=== PATIENT | female | born 1975 | race Caucasian/White ===

== ENCOUNTER → 2017-10-30 | Outpatient (CLI) | payer OTHER ==
[2017-10-30 09:07] LABS: BASOPHILS % (AUTO) 0.5 % (0-1); EOSINOPHILS # (AUTO) 0.1 X10'3 (0-0.9); EOSINOPHILS % (AUTO) 1.1 % (0-6); HEMATOCRIT 39.7 % (35.0-45.0); HEMOGLOBIN 14.1 g/dl (12.0-16.0); LYMPHOCYTES # (AUTO) 2.1 X10'3 (1.1-4.8); LYMPHOCYTES % (AUTO) 39.3 % (21-51); MEAN CORPUSCULAR HGB CONC 35.5 % (33.0-36.5); MEAN CORPUSCULAR VOLUME 95.6 FL (78-98); MEAN PLATELET VOLUME 7.4 FL (7.4-10.4); MONOCYTES # (AUTO) 0.3 X10'3 (0-0.9); MONOCYTES % (AUTO) 6.5 % (2-12); NEUTROPHILS # (AUTO) 2.8 X10'3 (1.8-7.7); NEUTROPHILS % (AUTO) 52.6 % (42-75); PLATELET COUNT 273 X10'3 (140-440); RED BLOOD COUNT 4.15 X10'6 (4.20-5.60); RED CELL DISTRIBUTION WIDTH 12.4 % (11.5-14.5); WHITE BLOOD COUNT 5.3 X10'3 (4.5-11.0)
[2017-10-30 09:35] LABS: ALANINE AMINOTRANSFERASE 64 U/L (12-78); ALBUMIN 4.5 G/DL (3.4-5.0); ALBUMIN/GLOBULIN RATIO 1.5 (1.1-1.5); ALKALINE PHOSPHATASE 54 IU/L (46-116); ANION GAP 10 (8-16); ASPARTATE AMINO TRANSFERASE 32 U/L (10-37); BILIRUBIN,TOTAL 0.8 MG/DL (0.1-1.0); BLOOD UREA NITROGEN 14 MG/DL (7-18); BUN/CREATININE RATIO 16.3 (6.6-38.0); CALCIUM 9.3 MG/DL (8.5-10.1); CHLORIDE 104 MMOL/L (99-107); CHOL/HDL RATIO 2.1 (0.00-4.99); CHOLESTEROL 206 MG/DL (0-200); CREATININE 0.86 MG/DL (0.40-0.90); GLUCOSE 101 MG/DL (70-104); HDL CHOLESTEROL 98 MG/DL (35-60); LDL CHOLESTEROL 104 MG/DL (50-100); POTASSIUM 4.1 MMOL/L (3.5-5.1); SODIUM 142 MMOL/L (135-145); TOTAL CARBON DIOXIDE 27.6 MMOL/L (24-32); TOTAL PROTEIN 7.6 G/DL (6.4-8.2); TRIGLYCERIDES 75 MG/DL (20-135); eGFR 72 ML/MIN
[2017-10-30 09:49] LABS: HEMOGLOBIN A1C 4.8 % (4.5-6.2)
== END ==
LOC: LAB 08:31
PROVIDERS: ATTEND Family Medicine
DX: D64.9 Anemia, unspecified (principal); E11.9 Type 2 diabetes mellitus without complications; E78.5 Hyperlipidemia, unspecified; E03.9 Hypothyroidism, unspecified; E55.9 Vitamin D deficiency, unspecified; R79.9 Abnormal finding of blood chemistry, unspecified
CPT/HCPCS: 36415; 80053; 80061; 82306; 83036; 84443; 85025

== ENCOUNTER 2018-04-01 07:36 | Outpatient (CLI) | payer OTHER | END 2018-04-01 23:59 | disposition home or self-care (01) | LOC: LAB 07:36 | PROVIDERS: ATTEND Family Medicine | DX: E03.9 Hypothyroidism, unspecified (principal) | CPT/HCPCS: 36415; 84443 ==

== ENCOUNTER 2018-04-16 12:41 | Outpatient (CLI) | payer OTHER | END 2018-04-16 23:59 | disposition home or self-care (01) | LOC: RAD 12:41 | PROVIDERS: ATTEND Podiatrist Foot & Ankle Surgery | DX: M20.42 Other hammer toe(s) (acquired), left foot (principal); M79.672 Pain in left foot | CPT/HCPCS: 73720 ==

== ENCOUNTER 2018-05-05 05:30 | Day surgery (SDC) | payer OTHER ==
[2018-04-29 15:52] LABS: BASOPHILS % (AUTO) 0.4 % (0-1); EOSINOPHILS # (AUTO) 0.1 X10'3 (0-0.9); EOSINOPHILS % (AUTO) 1.2 % (0-6); LYMPHOCYTES # (AUTO) 2.4 X10'3 (1.1-4.8); LYMPHOCYTES % (AUTO) 31.9 % (21-51); MEAN CORPUSCULAR HEMOGLOBIN 33.1 PG (27.0-31.0); MEAN CORPUSCULAR HGB CONC 34.6 % (33.0-36.5); MEAN CORPUSCULAR VOLUME 95.7 FL (78-98); MONOCYTES # (AUTO) 0.5 X10'3 (0-0.9); MONOCYTES % (AUTO) 7.2 % (2-12); NEUTROPHILS # (AUTO) 4.4 X10'3 (1.8-7.7); NEUTROPHILS % (AUTO) 59.3 % (42-75); PRE OP HEMATOCRIT 40.4 % (35.0-45.0); PRE OP PLATELET COUNT 278 X10'3 (140-440); RED BLOOD COUNT 4.22 X10'6 (4.20-5.60); RED CELL DISTRIBUTION WIDTH 12.9 % (11.5-14.5)
[2018-04-29 16:00] LABS: HCG SERUM QL NEGATIVE
[2018-04-29 16:06] LABS: ALBUMIN 3.8 G/DL (3.4-5.0); ALBUMIN/GLOBULIN RATIO 1.2 (1.1-1.5); ALKALINE PHOSPHATASE 73 IU/L (46-116); BLOOD UREA NITROGEN 18 MG/DL (7-18); BUN/CREATININE RATIO 20.7 (6.6-38.0); CALCIUM 8.6 MG/DL (8.5-10.1); CHLORIDE 104 MMOL/L (99-107); CREATININE 0.87 MG/DL (0.40-0.90); PRE OP ALT 62 U/L (30-65); PRE OP ANION GAP 7 (8-16); PRE OP AST 33 U/L (10-37); PRE OP BILIRUB, TOTAL 0.5 MG/DL (0.0-1.0); PRE OP GLUCOSE 89 MG/DL (70-104); PRE OP POTASSIUM 3.7 MMOL/L (3.4-5.1); PRE OP SODIUM 140 MMOL/L (135-145); TOTAL CARBON DIOXIDE 29.2 MMOL/L (24-32); TOTAL PROTEIN 7.1 G/DL (6.4-8.2); eGFR 71 ML/MIN
[~2018-05-05] VITALS: Ht 165.1 cm; Wt 79.4 kg
[2018-05-05] VITALS (9 sets, daily range): BP systolic 123–154; BP diastolic 78–106
[~2018-05-05 05:30] MED LIST: Cefazolin 2GM/50ML dext iso,osmotic IVPB IV ONE; LEVO112T39 PO; famotidine 20mg tablet PO ONE; ringers solution, lacted 1,000 ML IV SCH
[2018-05-05] MEDS ORDERED: LIDOcaine 1% (10mg/ml) 2ml vial ONE (05:54)
[2018-05-05] MEDS ORDERED: sevoflurane 250ml liquid IH ONE (07:15)
[2018-05-05] MEDS ORDERED: fentaNYL/PF 50MCG/1 ML 2ML syringe ONE (07:23)
[2018-05-05] MEDS ORDERED: midazolam 2 mg/2 ml injection ONE (07:25)
[2018-05-05] MEDS ORDERED: LIDOcaine 2% (20mg/ml) 5ml vial ONE (07:25)
[2018-05-05] MEDS ORDERED: propofol inj 20 ML IV ONE (07:25)
[2018-05-05] MEDS ORDERED: ondansetron/PF 4mg/2ml inj ONE (07:33)
[2018-05-05] MEDS ORDERED: dexamethasone sod phosphate 4mg/ml inj. ONE (07:33)
[2018-05-05] MEDS ORDERED: ringers solution, lacted 1,000 ML IV SCH (07:49)
[2018-05-05] MEDS ORDERED: proCHLORperazine 10 MG/2 ml inj IV PRN (07:50)
[2018-05-05] MEDS ORDERED: ondansetron/PF 4mg/2ml inj IV PRN (07:50)
[2018-05-05] MEDS ORDERED: morphine 4 MG/ML inj SYRINge IV PRN ×2 (07:50)
[2018-05-05] MEDS ORDERED: meperidine/PF 25mg/ml syringe IV PRN ×2 (07:50)
[2018-05-05] MEDS ORDERED: ketorolac trometh. 30mg/ml inj. ONE (08:04)
[2018-05-05] MEDS: meperidine/PF 25mg/ml syringe IV PRN ×2 (08:18→08:35)
[2018-05-05] MEDS ORDERED: HYDROcodone/acetaminophen 5mg/325mg tablet PO ONE (08:35)
== END 2018-05-05 09:10 | disposition home or self-care (01) ==
LOC: PAS 05:30
PROVIDERS: ATTEND Obstetrics & Gynecology
DX: N85.8 Other specified noninflammatory disorders of uterus (principal); N92.0 Excessive and frequent menstruation with regular cycle; E03.9 Hypothyroidism, unspecified; E78.5 Hyperlipidemia, unspecified; E11.9 Type 2 diabetes mellitus without complications; E55.9 Vitamin D deficiency, unspecified; Z72.89 Other problems related to lifestyle; Z79.899 Other long term (current) drug therapy; Z98.890 Other specified postprocedural states
CPT/HCPCS: 36415; 58563; 80053; 84703; 85025; 86885; 86900; 86901; A4355; A6255; J0690; J1100; J1885; J2001; J2175; J2250; J2405; J2704; J3010; J3490; J7120; A7000

== ENCOUNTER 2018-10-10 15:38 | Emergency (ER) | payer OTHER ==
[~2018-10-10] VITALS: Ht 165.1 cm; Wt 79.5 kg
[~2018-10-10 15:38] MED LIST changes: -Cefazolin 2GM/50ML dext iso,osmotic IVPB IV ONE; -famotidine 20mg tablet PO ONE; -ringers solution, lacted 1,000 ML IV SCH
[2018-10-10] MEDS ORDERED: HYDROcodone/acetaminophen 10/325mg tab PO STA (15:45)
[2018-10-10] MEDS ORDERED: HYDROcodone/acetaminophen 5mg/325mg tablet PO ONE (15:55)
[2018-10-10 16:02] VITALS: BP 145/69
[2018-10-10] MEDS ORDERED: HYDR-4384 PO (16:12)
== END 2018-10-10 16:43 | disposition home or self-care (01) ==
LOC: ER 15:38
DX: S82.65XA Nondisplaced fracture of lateral malleolus of left fibula, initial encounter for closed fracture (principal); E03.9 Hypothyroidism, unspecified; Z79.899 Other long term (current) drug therapy; V00.311A Fall from snowboard, initial encounter; Y93.23 Activity, snow (alpine) (downhill) skiing, snowboarding, sledding, tobogganing and snow tubing; Y92.89 Other specified places as the place of occurrence of the external cause; Y99.8 Other external cause status
CPT/HCPCS: 29515; 73610; 99284

== ENCOUNTER 2018-11-02 13:06 | Outpatient (CLI) | payer OTHER ==
[2018-11-02 13:06] VITALS: BP 141/97
== END 2018-11-02 13:25 | disposition home or self-care (01) ==
LOC: ORTHO 13:06
PROVIDERS: ATTEND Nurse Practitioner Family
DX: S82.62XD Displaced fracture of lateral malleolus of left fibula, subsequent encounter for closed fracture with routine healing (principal); W19.XXXD Unspecified fall, subsequent encounter
CPT/HCPCS: 73610; 99213

== ENCOUNTER 2018-11-30 09:30 | Outpatient (CLI) | payer OTHER ==
[2018-11-30 09:29] VITALS: BP 127/90
== END 2018-11-30 10:02 | disposition home or self-care (01) ==
LOC: ORTHO 09:30
PROVIDERS: ATTEND Nurse Practitioner Family
DX: S82.65XD Nondisplaced fracture of lateral malleolus of left fibula, subsequent encounter for closed fracture with routine healing (principal); V00.311D Fall from snowboard, subsequent encounter
CPT/HCPCS: 73610; 99213

== ENCOUNTER 2019-02-15 08:10 | Outpatient (CLI) | payer OTHER ==
[2019-02-15 08:43] LABS: BASOPHILS % (AUTO) 0.6 % (0-1); EOSINOPHILS % (AUTO) 0.5 % (0-6); HEMATOCRIT 40.4 % (35.0-45.0); HEMOGLOBIN 13.7 g/dl (12.0-16.0); LYMPHOCYTES # (AUTO) 2.3 X10'3 (1.1-4.8); LYMPHOCYTES % (AUTO) 32.9 % (21-51); MEAN CORPUSCULAR HEMOGLOBIN 32.8 PG (27.0-31.0); MEAN CORPUSCULAR VOLUME 96.4 FL (78-98); MEAN PLATELET VOLUME 7.8 FL (7.4-10.4); MONOCYTES # (AUTO) 0.5 X10'3 (0-0.9); MONOCYTES % (AUTO) 7.3 % (2-12); NEUTROPHILS # (AUTO) 4.1 X10'3 (1.8-7.7); NEUTROPHILS % (AUTO) 58.7 % (42-75); PLATELET COUNT 254 X10'3 (140-440); RED BLOOD COUNT 4.19 X10'6 (4.20-5.60); RED CELL DISTRIBUTION WIDTH 13.1 % (11.5-14.5)
[2019-02-15 09:10] LABS: ALANINE AMINOTRANSFERASE 61 U/L (12-78); ALBUMIN 3.9 G/DL (3.4-5.0); ALBUMIN/GLOBULIN RATIO 1.2 (1.1-1.5); ALKALINE PHOSPHATASE 59 IU/L (46-116); ANION GAP 9 (8-16); ASPARTATE AMINO TRANSFERASE 30 U/L (10-37); BILIRUBIN,TOTAL 0.8 MG/DL (0.1-1.0); BLOOD UREA NITROGEN 13 MG/DL (7-18); BUN/CREATININE RATIO 16.5 (6.6-38.0); CHLORIDE 103 MMOL/L (99-107); CHOLESTEROL 231 MG/DL (0-200); CREATININE 0.79 MG/DL (0.40-0.90); GLUCOSE 93 MG/DL (70-104); HDL CHOLESTEROL 78 MG/DL (35-60); LDL CHOLESTEROL 135 MG/DL (50-100); POTASSIUM 3.6 MMOL/L (3.5-5.1); SODIUM 139 MMOL/L (135-145); TOTAL CARBON DIOXIDE 27.5 MMOL/L (24-32); TOTAL PROTEIN 7.1 G/DL (6.4-8.2); TRIGLYCERIDES 74 MG/DL (20-135); eGFR 79 ML/MIN
== END 2019-02-15 23:59 | disposition home or self-care (01) ==
LOC: LAB 08:10
PROVIDERS: ATTEND Nurse Practitioner Family
DX: E03.9 Hypothyroidism, unspecified (principal)
CPT/HCPCS: 36415; 80053; 80061; 82306; 84439; 84443; 85025

== ENCOUNTER 2019-07-14 08:26 | Outpatient (CLI) | payer OTHER | END 2019-07-14 23:59 | disposition home or self-care (01) | LOC: LAB 08:26 | PROVIDERS: ATTEND Family Medicine | DX: E03.9 Hypothyroidism, unspecified (principal) | CPT/HCPCS: 36415; 84443 ==

== ENCOUNTER 2020-01-19 08:23 | Outpatient (CLI) | payer OTHER ==
[2020-01-19 09:05] LABS: BASOPHILS % (AUTO) 0.4 % (0-1); EOSINOPHILS # (AUTO) 0.1 X10'3 (0-0.9); HEMATOCRIT 42.3 % (35.0-45.0); HEMOGLOBIN 14.3 g/dl (12.0-16.0); LYMPHOCYTES # (AUTO) 1.7 X10'3 (1.1-4.8); LYMPHOCYTES % (AUTO) 29.1 % (21-51); MEAN CORPUSCULAR HEMOGLOBIN 32.9 PG (27.0-31.0); MEAN CORPUSCULAR HGB CONC 33.9 g/dL (33.0-36.5); MEAN CORPUSCULAR VOLUME 96.9 FL (78-98); MEAN PLATELET VOLUME 7.9 FL (7.4-10.4); MONOCYTES # (AUTO) 0.4 X10'3 (0-0.9); MONOCYTES % (AUTO) 6.6 % (2-12); NEUTROPHILS # (AUTO) 3.7 X10'3 (1.8-7.7); NEUTROPHILS % (AUTO) 62.9 % (42-75); PLATELET COUNT 267 X10'3 (140-440); RED BLOOD COUNT 4.36 X10'6 (4.20-5.60); WHITE BLOOD COUNT 5.9 X10'3 (4.5-11.0)
[2020-01-19 09:28] LABS: ALANINE AMINOTRANSFERASE 107 U/L (12-78); ALBUMIN 4.1 G/DL (3.4-5.0); ALBUMIN/GLOBULIN RATIO 1.2 (1.1-1.5); ALKALINE PHOSPHATASE 57 IU/L (46-116); ANION GAP 9 (8-16); ASPARTATE AMINO TRANSFERASE 78 U/L (10-37); BILIRUBIN,TOTAL 0.9 MG/DL (0.1-1.0); BLOOD UREA NITROGEN 19 MG/DL (7-18); BUN/CREATININE RATIO 18.3 (6.6-38.0); CALCIUM 8.9 MG/DL (8.5-10.1); CHLORIDE 105 MMOL/L (99-107); CHOL/HDL RATIO 2.9 (0.00-4.99); CHOLESTEROL 244 MG/DL (0-200); CREATININE 1.04 MG/DL (0.40-0.90); GLUCOSE 93 MG/DL (70-104); HDL CHOLESTEROL 85 MG/DL (35-60); LDL CHOLESTEROL 137 MG/DL (50-100); POTASSIUM 4.5 MMOL/L (3.5-5.1); SODIUM 141 MMOL/L (135-145); TOTAL CARBON DIOXIDE 27.5 MMOL/L (24-32); TOTAL PROTEIN 7.4 G/DL (6.4-8.2); TRIGLYCERIDES 131 MG/DL (20-135); eGFR 57 ML/MIN
[2020-01-20 11:32] LABS: VITAMIN D, 25-HYDROXY 65.1 ng/mL (30.0-100.0)
== END 2020-01-19 23:59 | disposition home or self-care (01) ==
LOC: LAB 08:23
PROVIDERS: ATTEND Family Medicine
DX: Z00.00 Encounter for general adult medical examination without abnormal findings (principal); R79.9 Abnormal finding of blood chemistry, unspecified; D64.9 Anemia, unspecified; E11.9 Type 2 diabetes mellitus without complications; E03.9 Hypothyroidism, unspecified; E78.00 Pure hypercholesterolemia, unspecified
CPT/HCPCS: 36415; 80053; 80061; 82306; 82607; 82746; 83036; 84443; 85025

== ENCOUNTER 2020-04-04 13:22 | Emergency (ER) | payer BC, OTHER ==
[~2020-04-04] VITALS: Ht 165.1 cm; Wt 87.0 kg
[2020-04-04 13:27] VITALS: BP 152/102
[2020-04-04] MEDS ORDERED: orphenadrine citrate 60mg/2ml inj. IM ONE (14:00)
[2020-04-04] MEDS ORDERED: ketorolac trometh. 30mg/ml inj. IM ONE (14:00)
[2020-04-04] MEDS ORDERED: IBUP-1985 PO (14:01)
[2020-04-04] MEDS ORDERED: METH-360 PO (14:01)
== END 2020-04-04 14:19 | disposition home or self-care (01) ==
LOC: ER 13:22
DX: M54.5 Low back pain (principal); E03.9 Hypothyroidism, unspecified; Z98.890 Other specified postprocedural states; Z79.899 Other long term (current) drug therapy
CPT/HCPCS: 96372; 99284; J1885; J2360

== ENCOUNTER 2020-10-02 14:44 | Emergency (ER) | payer BC ==
[~2020-10-02] VITALS: Ht 165.1 cm; Wt 84.1 kg
[~2020-10-02 14:44] MED LIST changes: +IBUP-1985 PO; +METH-360 PO
[2020-10-02] MEDS ORDERED: aspirin 81mg tab.chew PO ONE (15:00)
[2020-10-02 15:20] LABS: BASOPHILS # (AUTO) 0.1 X10'3 (0-0.2); BASOPHILS % (AUTO) 0.7 % (0-1); EOSINOPHILS % (AUTO) 0.5 % (0-6); HEMATOCRIT 42.2 % (35.0-45.0); HEMOGLOBIN 14.5 g/dl (12.0-16.0); LYMPHOCYTES # (AUTO) 2.6 X10'3 (1.1-4.8); LYMPHOCYTES % (AUTO) 35.8 % (21-51); MEAN CORPUSCULAR HEMOGLOBIN 32.6 PG (27.0-31.0); MEAN CORPUSCULAR HGB CONC 34.3 g/dL (33.0-36.5); MEAN PLATELET VOLUME 7.4 FL (7.4-10.4); MONOCYTES # (AUTO) 0.5 X10'3 (0-0.9); MONOCYTES % (AUTO) 6.3 % (2-12); NEUTROPHILS # (AUTO) 4.2 X10'3 (1.8-7.7); NEUTROPHILS % (AUTO) 56.7 % (42-75); PLATELET COUNT 339 X10'3 (140-440); RED BLOOD COUNT 4.44 X10'6 (4.20-5.60); RED CELL DISTRIBUTION WIDTH 12.5 % (11.5-14.5); WHITE BLOOD COUNT 7.4 X10'3 (4.5-11.0)
[2020-10-02 15:35] LABS: ALANINE AMINOTRANSFERASE 92 U/L (12-78); ALBUMIN/GLOBULIN RATIO 1.1 (1.1-1.5); ALKALINE PHOSPHATASE 71 IU/L (46-116); ANION GAP 7 (8-16); ASPARTATE AMINO TRANSFERASE 43 U/L (10-37); BILIRUBIN,TOTAL 0.7 MG/DL (0.1-1.0); BLOOD UREA NITROGEN 17 MG/DL (7-18); BUN/CREATININE RATIO 16.8 (6.6-38.0); CALCIUM 9.1 MG/DL (8.5-10.1); CHLORIDE 102 MMOL/L (99-107); CREATININE 1.01 MG/DL (0.40-0.90); GLUCOSE 107 MG/DL (70-104); POTASSIUM 3.9 MMOL/L (3.5-5.1); SODIUM 140 MMOL/L (135-145); TOTAL CARBON DIOXIDE 30.8 MMOL/L (24-32); TOTAL PROTEIN 7.7 G/DL (6.4-8.2); eGFR 59 ML/MIN
[2020-10-02 15:47] VITALS: BP 168/116
== END 2020-10-02 16:06 | disposition home or self-care (01) ==
LOC: EEVIPCON 14:45 → ER 14:45
DX: R07.89 Other chest pain (principal); I10 Essential (primary) hypertension; E03.9 Hypothyroidism, unspecified; Z98.890 Other specified postprocedural states; Z72.89 Other problems related to lifestyle; Z79.899 Other long term (current) drug therapy
CPT/HCPCS: 36415; 71045; 80053; 83735; 83880; 84484; 85025; 93005; 99285

== ENCOUNTER 2020-10-17 08:52 | Outpatient (CLI) | payer BC ==
[2020-10-17 10:08] LABS: ANION GAP 10 (8-16); BLOOD UREA NITROGEN 17 MG/DL (7-18); BUN/CREATININE RATIO 20.5 (6.6-38.0); CHLORIDE 102 MMOL/L (99-107); CREATININE 0.83 MG/DL (0.40-0.90); GLUCOSE 107 MG/DL (70-104); POTASSIUM 4.1 MMOL/L (3.5-5.1); SODIUM 140 MMOL/L (135-145); TOTAL CARBON DIOXIDE 27.7 MMOL/L (24-32)
[2020-10-17 10:09] LABS: ALANINE AMINOTRANSFERASE 74 U/L (12-78); ALBUMIN 4.3 G/DL (3.4-5.0); ALBUMIN/GLOBULIN RATIO 1.1 (1.1-1.5); ALKALINE PHOSPHATASE 76 IU/L (46-116); ASPARTATE AMINO TRANSFERASE 37 U/L (10-37); BILIRUBIN,TOTAL 0.6 MG/DL (0.1-1.0); CALCIUM 9.2 MG/DL (8.5-10.1); HDL CHOLESTEROL 86 MG/DL (35-60); LDL CHOLESTEROL 131 MG/DL (50-100); TOTAL PROTEIN 8.1 G/DL (6.4-8.2); TRIGLYCERIDES 105 MG/DL (20-135); eGFR 74 ML/MIN
[2020-10-17 11:57] LABS: CHOL/HDL RATIO 2.8 (0.00-4.99); CHOLESTEROL 239 MG/DL (0-200)
[2020-10-18 14:33] LABS: HBSAG SCREEN Negative (Negative); HEP A AB, IGM Negative (Negative); HEPATITIS C ANTIBODY <0.1 s/co ratio (0.0-0.9)
== END 2020-10-17 23:59 | disposition home or self-care (01) ==
LOC: LAB 08:52
PROVIDERS: ATTEND Nurse Practitioner Family
DX: I10 Essential (primary) hypertension (principal); E03.9 Hypothyroidism, unspecified; R74.01 Elevation of levels of liver transaminase levels
CPT/HCPCS: 36415; 80053; 80061; 80074; 84439; 84443

== ENCOUNTER 2021-02-06 09:06 | Outpatient (CLI) | payer BC ==
[2021-02-06 09:34] LABS: BASOPHILS % (AUTO) 0.6 % (0-1); EOSINOPHILS % (AUTO) 0.4 % (0-6); HEMATOCRIT 40.6 % (35.0-45.0); HEMOGLOBIN 14.2 g/dl (12.0-16.0); LYMPHOCYTES # (AUTO) 2.2 X10'3 (1.1-4.8); LYMPHOCYTES % (AUTO) 36.7 % (21-51); MEAN CORPUSCULAR HEMOGLOBIN 33.4 PG (27.0-31.0); MEAN CORPUSCULAR HGB CONC 34.8 g/dL (33.0-36.5); MEAN CORPUSCULAR VOLUME 95.9 FL (78-98); MEAN PLATELET VOLUME 7.8 FL (7.4-10.4); MONOCYTES # (AUTO) 0.5 X10'3 (0-0.9); MONOCYTES % (AUTO) 7.7 % (2-12); NEUTROPHILS # (AUTO) 3.3 X10'3 (1.8-7.7); NEUTROPHILS % (AUTO) 54.6 % (42-75); PLATELET COUNT 290 X10'3 (140-440); RED BLOOD COUNT 4.23 X10'6 (4.20-5.60); RED CELL DISTRIBUTION WIDTH 12.4 % (11.5-14.5)
[2021-02-06 10:06] LABS: ALANINE AMINOTRANSFERASE 62 U/L (12-78); ALBUMIN/GLOBULIN RATIO 1.1 (1.1-1.5); ALKALINE PHOSPHATASE 69 IU/L (46-116); ANION GAP 8 (8-16); ASPARTATE AMINO TRANSFERASE 39 U/L (10-37); BILIRUBIN,TOTAL 1.1 MG/DL (0.1-1.0); BLOOD UREA NITROGEN 15 MG/DL (7-18); BUN/CREATININE RATIO 15.5 (6.6-38.0); CALCIUM 9.4 MG/DL (8.5-10.1); CHLORIDE 102 MMOL/L (99-107); CREATININE 0.97 MG/DL (0.40-0.90); GLUCOSE 102 MG/DL (70-104); SODIUM 141 MMOL/L (135-145); TOTAL CARBON DIOXIDE 30.7 MMOL/L (24-32); TOTAL PROTEIN 7.5 G/DL (6.4-8.2); eGFR 62 ML/MIN
== END 2021-02-06 23:59 | disposition home or self-care (01) ==
LOC: LAB 09:06
PROVIDERS: ATTEND Nurse Practitioner Family
DX: E03.9 Hypothyroidism, unspecified (principal); I10 Essential (primary) hypertension; R53.83 Other fatigue
CPT/HCPCS: 36415; 80053; 84443; 85025

== ENCOUNTER 2021-07-08 09:44 | Emergency (ER) | payer BC ==
[~2021-07-08] VITALS: Ht 165.1 cm; Wt 85.0 kg
[2021-07-08 10:04] VITALS: BP 165/99
== END 2021-07-08 10:13 | disposition home or self-care (01) ==
LOC: ER 09:44
DX: R05.9 Cough, unspecified (principal); R51.9 Headache, unspecified; R09.81 Nasal congestion; I10 Essential (primary) hypertension; E06.9 Thyroiditis, unspecified; Z20.822 Contact with and (suspected) exposure to COVID-19
CPT/HCPCS: 87635; 99283; C9803

== ENCOUNTER 2021-08-19 09:35 | Outpatient (CLI) | payer BC ==
[2021-08-19 10:12] LABS: CLARITY,URINE SLIGHTLY CLOUDY (Clear); COLOR,URINE YELLOW (Yellow); GLUCOSE, URINE NEGATIVE (Neg); KETONES,URINE NEGATIVE (Neg); LEUKOCYTE ESTERASE ,URINE NEGATIVE (Neg); NITRITES, URINE NEGATIVE (Neg); OCCULT BLOOD,URINE NEGATIVE (Neg); PROTEIN,URINE NEGATIVE (Neg); UROBILINOGEN,URINE 0.2 E.U/dL (0.2-1.0)
[2021-08-19 10:14] LABS: BASOPHILS % (AUTO) 0.4 % (0-1); EOSINOPHILS % (AUTO) 0.5 % (0-6); HEMATOCRIT 39.3 % (35.0-45.0); HEMOGLOBIN 13.7 g/dl (12.0-16.0); MEAN CORPUSCULAR HEMOGLOBIN 33.6 PG (27.0-31.0); MEAN CORPUSCULAR HGB CONC 34.8 g/dL (33.0-36.5); MEAN CORPUSCULAR VOLUME 96.5 FL (78-98); MEAN PLATELET VOLUME 7.4 FL (7.4-10.4); MONOCYTES # (AUTO) 0.5 X10'3 (0-0.9); MONOCYTES % (AUTO) 7.1 % (2-12); NEUTROPHILS # (AUTO) 3.2 X10'3 (1.8-7.7); PLATELET COUNT 278 X10'3 (140-440); RED BLOOD COUNT 4.07 X10'6 (4.20-5.60); RED CELL DISTRIBUTION WIDTH 12.8 % (11.5-14.5); WHITE BLOOD COUNT 6.8 X10'3 (4.5-11.0)
[2021-08-19 10:15] LABS: UA COLLECTION TYPE CLN CATCH MIDSTREAM
[2021-08-19 10:17] LABS: MUCUS STRANDS FEW /LPF (Neg); SQUAMOUS EPITHELIAL CELL,UR MANY /LPF (FEW)
[2021-08-19 10:18] LABS: BACTERIA,URINE FEW /HPF (Neg); RBC,URINE 0-2 /HPF (0-2); WBC,URINE 0-4 /HPF (0-4)
== END 2021-08-19 23:59 | disposition home or self-care (01) ==
LOC: LAB 09:35
PROVIDERS: ATTEND Plastic Surgery
DX: Z01.818 Encounter for other preprocedural examination (principal); Z41.1 Encounter for cosmetic surgery
CPT/HCPCS: 36415; 81001; 85025

== ENCOUNTER 2021-10-03 06:57 | Emergency (ER) | payer BC ==
[~2021-10-03] VITALS: Ht 165.1 cm; Wt 86.4 kg
--- NOTE | 2021-10-03 07:49 | NUR ---
pt is positive for covid notified the patient .
[2021-10-03] MEDS ORDERED: dexamethasone 4mg tablet PO ONE (08:10)
[2021-10-03] MEDS ORDERED: DEXA6TAB6 PO (08:10)
[2021-10-03 08:22] VITALS: BP 134/86
== END 2021-10-03 08:25 | disposition home or self-care (01) ==
LOC: ER 06:57
DX: U07.1 COVID-19 (principal); I10 Essential (primary) hypertension; E03.9 Hypothyroidism, unspecified
CPT/HCPCS: 87635; 99283; C9803

== ENCOUNTER 2022-07-08 14:42 | Outpatient (CLI) | payer BC ==
[~2022-07-08 14:42] MED LIST changes: +HYDR25TA5 PO; -IBUP-1985 PO; -LEVO112T39 PO; +LEVO150T8 PO; +LISI10TA27 PO; -METH-360 PO
[2022-07-08 15:23] LABS: APTT 26 SECONDS (22-32)
[2022-07-08 15:24] LABS: ALANINE AMINOTRANSFERASE 153 U/L (12-78); ALBUMIN 4.2 G/DL (3.4-5.0); ALBUMIN/GLOBULIN RATIO 1.1 (1.1-1.5); ALKALINE PHOSPHATASE 88 IU/L (46-116); BILIRUBIN,DIRECT 0.2 MG/DL (0-0.3); BILIRUBIN,TOTAL 0.5 MG/DL (0.1-1.0); TOTAL PROTEIN 7.9 G/DL (6.4-8.2)
[2022-07-08 15:28] LABS: ASPARTATE AMINO TRANSFERASE 69 U/L (10-37)
== END 2022-07-08 23:59 | disposition home or self-care (01) ==
LOC: LAB 14:42
PROVIDERS: ATTEND Obstetrics & Gynecology
DX: R74.01 Elevation of levels of liver transaminase levels (principal)
CPT/HCPCS: 36415; 80074; 80076; 85610; 85730

== ENCOUNTER 2022-11-04 08:04 | Outpatient (CLI) | payer BC ==
[2022-11-04 08:47] LABS: BASOPHILS % (AUTO) 0.5 % (0-1); EOSINOPHILS # (AUTO) 0.1 X10'3 (0-0.9); EOSINOPHILS % (AUTO) 0.7 % (0-6); HEMATOCRIT 41.2 % (35.0-45.0); HEMOGLOBIN 14.1 g/dl (12.0-16.0); LYMPHOCYTES # (AUTO) 2.5 X10'3 (1.1-4.8); LYMPHOCYTES % (AUTO) 34.2 % (21-51); MEAN CORPUSCULAR HEMOGLOBIN 33.1 PG (27.0-31.0); MEAN CORPUSCULAR HGB CONC 34.3 g/dL (33.0-36.5); MEAN CORPUSCULAR VOLUME 96.6 FL (78-98); MEAN PLATELET VOLUME 7.7 FL (7.4-10.4); MONOCYTES # (AUTO) 0.5 X10'3 (0-0.9); MONOCYTES % (AUTO) 7.3 % (2-12); NEUTROPHILS # (AUTO) 4.2 X10'3 (1.8-7.7); NEUTROPHILS % (AUTO) 57.3 % (42-75); PLATELET COUNT 263 X10'3 (140-440); RED BLOOD COUNT 4.27 X10'6 (4.20-5.60); RED CELL DISTRIBUTION WIDTH 12.6 % (11.5-14.5); WHITE BLOOD COUNT 7.3 X10'3 (4.5-11.0)
[2022-11-04 09:01] LABS: ALANINE AMINOTRANSFERASE 74 U/L (12-78); ALBUMIN 4.1 G/DL (3.4-5.0); ALBUMIN/GLOBULIN RATIO 1.2 (1.1-1.5); ALKALINE PHOSPHATASE 68 IU/L (46-116); ANION GAP 12 (8-16); ASPARTATE AMINO TRANSFERASE 40 U/L (10-37); BILIRUBIN,TOTAL 1.1 MG/DL (0.1-1.0); BLOOD UREA NITROGEN 17 MG/DL (7-18); BUN/CREATININE RATIO 19.1 (6.6-38.0); CALCIUM 9.5 MG/DL (8.5-10.1); CHLORIDE 103 MMOL/L (99-107); CHOL/HDL RATIO 3.1 (0.00-4.99); CHOLESTEROL 218 MG/DL (0-200); CREATININE 0.89 MG/DL (0.40-0.90); GLUCOSE 109 MG/DL (70-104); HDL CHOLESTEROL 71 MG/DL (35-60); LDL CHOLESTEROL 119 MG/DL (50-100); POTASSIUM 3.7 MMOL/L (3.5-5.1); SODIUM 142 MMOL/L (135-145); TOTAL CARBON DIOXIDE 26.6 MMOL/L (24-32); TOTAL PROTEIN 7.4 G/DL (6.4-8.2); TRIGLYCERIDES 189 MG/DL (20-135); eGFR 67 ML/MIN
[2022-11-05 10:00] LABS: PROGESTERONE 9.8 ng/mL (.)
[2022-11-05 15:26] LABS: VITAMIN D, 1,25 DIHYDROXY 58.7 pg/mL (24.8-81.5)
== END 2022-11-04 23:59 | disposition home or self-care (01) ==
LOC: LAB 08:04
PROVIDERS: ATTEND Nurse Practitioner Family
DX: E03.9 Hypothyroidism, unspecified (principal); E55.9 Vitamin D deficiency, unspecified; I10 Essential (primary) hypertension; R53.83 Other fatigue; N95.1 Menopausal and female climacteric states
CPT/HCPCS: 36415; 80053; 80061; 82652; 82670; 84144; 84402; 84403; 84439; 84443; 85025